=== PATIENT | female | born 1945 | race Caucasian/White ===

== ENCOUNTER 2023-04-13 11:03 | Outpatient (RCR) | payer OTHER, SELFPAY | END 2023-04-13 23:59 | disposition home or self-care (01) | LOC: RPT 11:03 | PROVIDERS: ATTENDING PHYSICIAN Physician Assistant | DX: M62.81 Muscle weakness (generalized) (principal); R26.9 Unspecified abnormalities of gait and mobility; Z73.6 Limitation of activities due to disability | CPT/HCPCS: 97110; 97112 ==

== ENCOUNTER → 2024-02-07 08:05 | Outpatient (REF) | payer OTHER, SELFPAY | LOC: HWWDC 08:05 | PROVIDERS: ATTENDING PHYSICIAN Physician Assistant | DX: Z12.31 Encounter for screening mammogram for malignant neoplasm of breast (principal) | CPT/HCPCS: 77063; 77067 ==

== ENCOUNTER → 2024-06-28 07:19 | Outpatient (REF) | payer OTHER, SELFPAY ==
--- NOTE | 2024-06-28 15:17 | EEGC.RPT ---
Continuous EEG Report
Report
TECHNICAL REMARKS: This is a technically satisfactory eighteen channel record employing 21 disc electrodes applied according to a measured international 10-20 electrode placement system. There were no significant technical difficulties. The study
was done on a [id number] System.
CLINICAL HISTORY: This is a 78-year-old woman with syncope and cognitive symptoms. This study was requested to look for epileptiform abnormalities.
MEDICATION: Lorazepam 0.5 Mg�
STUDY DURATION: 45 min, 16 secs
REPORT: At the onset of the EEG, the patient is awake. The background activity consists of 10-11 Hz, persistent, posteriorly dominant, moderate amplitude, symmetric and rhythmic activity that is reactive to eye-opening. Anteriorly, it consists of a
mixture of low voltage indeterminate activity and 20-25 Hz, persistent, low amplitude, symmetric and rhythmic activity. Stepwise intermittent photic stimulation (1-31 Hz) does not induce any abnormalities. Hyperventilation was not performed.
Drowsiness is characterized by low amplitude mixed frequency activity, decreased eye blinking, and muscle artifact. Excessive beta activity was present.
IMPRESSION: This is a normal awake and drowsy EEG. There is no evidence of focal slowing or epileptiform activity. A normal EEG does not rule out epilepsy. If the clinical picture warrants, a sleep-deprived awake and sleep record may be helpful.
== END ==
LOC: EEG 07:19
PROVIDERS: ATTENDING PHYSICIAN Psychiatry & Neurology Neurology; FAMILY PHYSICIAN Physician Assistant
DX: R41.3 Other amnesia (principal)
CPT/HCPCS: 95812

== ENCOUNTER → 2024-07-05 10:59 | Outpatient (REF) | payer OTHER, SELFPAY | LOC: RAD 10:59 | PROVIDERS: ATTENDING PHYSICIAN Psychiatry & Neurology Neurology; FAMILY PHYSICIAN Physician Assistant | DX: I73.9 Peripheral vascular disease, unspecified (principal) | CPT/HCPCS: 93925 ==

== ENCOUNTER → 2024-07-16 06:58 | Outpatient (REF) | payer OTHER, SELFPAY | LOC: PAVMRI 06:58 | PROVIDERS: ATTENDING PHYSICIAN Psychiatry & Neurology Neurology; FAMILY PHYSICIAN Physician Assistant | DX: R26.89 Other abnormalities of gait and mobility (principal); R29.898 Other symptoms and signs involving the musculoskeletal system | CPT/HCPCS: 72141 ==

== ENCOUNTER → 2024-09-25 13:16 | Outpatient (REF) | payer OTHER, SELFPAY | LOC: MRI 13:16 | PROVIDERS: ATTENDING PHYSICIAN Psychiatry & Neurology Neurology; FAMILY PHYSICIAN Physician Assistant | DX: E23.6 Other disorders of pituitary gland (principal) | CPT/HCPCS: 70553; A9575 ==

== ENCOUNTER → 2024-12-07 11:31 | Outpatient (REF) | payer OTHER, SELFPAY | LOC: RAD 11:31 | PROVIDERS: ATTENDING PHYSICIAN Physician Assistant | DX: M79.604 Pain in right leg (principal); M79.89 Other specified soft tissue disorders | CPT/HCPCS: 73564 ==

== ENCOUNTER → 2024-12-10 10:55 | Outpatient (REF) | payer OTHER, SELFPAY | LOC: HWRAD 10:55 | PROVIDERS: ATTENDING PHYSICIAN Physician Assistant | DX: M79.89 Other specified soft tissue disorders (principal); M79.604 Pain in right leg | CPT/HCPCS: 93971 ==

== ENCOUNTER → 2024-12-20 09:16 | Outpatient (REF) | payer OTHER, SELFPAY | LOC: HWRAD 09:16 | PROVIDERS: ATTENDING PHYSICIAN Internal Medicine Hematology & Oncology; FAMILY PHYSICIAN Physician Assistant | DX: D50.9 Iron deficiency anemia, unspecified (principal); D69.6 Thrombocytopenia, unspecified | CPT/HCPCS: 76700 ==

== ENCOUNTER → 2025-01-04 13:46 | Outpatient (REF) | payer OTHER, SELFPAY | LOC: RAD 13:46 | PROVIDERS: ATTENDING PHYSICIAN Urology; FAMILY PHYSICIAN Physician Assistant | DX: R39.89 Other symptoms and signs involving the genitourinary system (principal); M62.89 Other specified disorders of muscle; N39.3 Stress incontinence (female) (male) | CPT/HCPCS: 76770; 76856 ==

== ENCOUNTER → 2025-02-06 13:01 | Outpatient (REF) | payer OTHER, SELFPAY | LOC: RCS 13:01 | PROVIDERS: ATTENDING PHYSICIAN Internal Medicine Interventional Cardiology; FAMILY PHYSICIAN Physician Assistant | DX: I34.0 Nonrheumatic mitral (valve) insufficiency (principal) | CPT/HCPCS: 93306 ==

== ENCOUNTER → 2025-02-07 07:52 | Outpatient (REF) | payer OTHER, SELFPAY | LOC: HWWDC 07:52 | PROVIDERS: ATTENDING PHYSICIAN Physician Assistant | DX: Z12.31 Encounter for screening mammogram for malignant neoplasm of breast (principal) | CPT/HCPCS: 77063; 77067 ==